=== PATIENT | female | born 1970 | race Two or more races ===

== ENCOUNTER → 2020-01-20 | Outpatient (CLI) | payer SELFPAY ==
[2020-01-25 12:51] LABS: HPV Reflexed? NOT INDICATED
== END | disposition home or self-care (01) ==
LOC: LABSPEC 15:49
PROVIDERS: Visit Provider Obstetrics & Gynecology
DX: Z12.4 Encounter for screening for malignant neoplasm of cervix (principal)
CPT/HCPCS: 88175; G0145

== ENCOUNTER → 2025-06-23 | Outpatient (CLI) | payer OTHER, SELFPAY ==
[2025-06-23 14:30] LABS: AST(SGOT) 94 U/L (<=31); Alanine Aminotransfer ALT/SGPT 123 U/L (<=34); Albumin, Serum 4.1 g/dL (3.5-5.0); Alkaline Phosphatase 143 U/L (35-104); Bilirubin, Direct 0.34 mg/dL (0.00-0.30); Globulin 3.3 g/dL (2.2-4.2)
[2025-06-25 15:08] LABS: Alpha Antitrypsin Serum 217 mg/dL (101-187); Anti-Smooth Muscle ABS 14 Units (0-19); GGTP 249 IU/L (0-60)
== END | disposition home or self-care (01) ==
LOC: MTLAB 10:49
PROVIDERS: PCP Student in an Organized Health Care Education/Training Program; Referring Provider Internal Medicine Gastroenterology; Visit Provider Internal Medicine Gastroenterology
DX: K75.9 Inflammatory liver disease, unspecified (principal)
CPT/HCPCS: 36415; 80076; 82103; 82390; 82977; 83516